=== PATIENT | female | born 1970 | race Two or more races ===

== ENCOUNTER 2020-07-19 14:25 | Outpatient (CLI) | payer OTHER ==
[~2020-07-19 14:25] MED LIST: OXYC1TAB9 PO; POLY119PG PO; ULTRACET PO
== END 2020-07-19 14:28 | disposition home or self-care (01) ==
LOC: LAB 14:25
PROVIDERS: ATTEND Internal Medicine
DX: Z20.828 Contact with and (suspected) exposure to other viral communicable diseases (principal)

== ENCOUNTER 2020-10-27 13:28 | Outpatient (CLI) | payer OTHER | END 2020-10-27 13:32 | disposition home or self-care (01) | LOC: LAB 13:28 | PROVIDERS: ATTEND Internal Medicine Infectious Disease | DX: Z20.828 Contact with and (suspected) exposure to other viral communicable diseases (principal) ==